=== PATIENT | female | born 1980 | race Caucasian/White ===

== ENCOUNTER 2017-10-26 18:15 | Emergency (ER) | payer OTHER ==
[2017-10-26] MEDS: LIDOCAINE 1% (MDV) 20 ML INJ SC (20:09)
== END 2017-10-26 20:21 | disposition home or self-care (01) ==
LOC: FTE 18:15
DX: O23.592 Infection of other part of genital tract in pregnancy, second trimester (principal); N75.1 Abscess of Bartholin's gland; Z3A.14 14 weeks gestation of pregnancy
CPT/HCPCS: 56420; 99283-25

== ENCOUNTER 2018-02-21 13:17 | Outpatient (CLI) | payer OTHER | END 2018-02-21 15:19 | disposition home or self-care (01) | LOC: OBT 13:17 → L-D 13:17 → OBT 15:19 | DX: O26.893 Other specified pregnancy related conditions, third trimester (principal); N75.0 Cyst of Bartholin's gland; O09.523 Supervision of elderly multigravida, third trimester; Z3A.31 31 weeks gestation of pregnancy | CPT/HCPCS: Z7500 ==

== ENCOUNTER 2018-02-23 16:23 | Inpatient (IN) | payer OTHER ==
[2018-02-23] MEDS: LACTATED RINGER'S 1,000 ML IV ×2 (17:58→22:37)
[2018-02-23] MEDS: ACETAMINOPHEN 1000MG/100ML IV 100 ML IVPB (17:59)
[2018-02-23] MEDS: LIDOCAINE 1% (MPF) 5 ML VIAL INFIL (18:27)
[2018-02-23] MEDS: TERBUTALINE 1 MG/ML INJ SC (18:33)
[2018-02-23] MEDS ORDERED: TERBUTALINE 1 MG/ML INJ SC (19:30)
[2018-02-23 21:07] LABS: ADD UMIC YES; UR ASCORBIC ACID 40 mg/dL (NEGATIVE); UR BACTERIA FEW /HPF (NONE SEEN); UR BILIRUBIN (Dip) NEGATIVE (NEGATIVE); UR BLOOD (Dip) NEGATIVE (NEGATIVE); UR CLARITY CLOUDY (CLEAR); UR COLOR YELLOW (YELLOW); UR GLUCOSE (Dip) NEGATIVE (NEGATIVE); UR KETONES (Dip) NEGATIVE (NEGATIVE); UR LEUKOCYTE ESTERASE (Dip) 3+ Leu/ul (NEGATIVE); UR MUCUS MODERATE /HPF (NONE SEEN); UR NITRITE (Dip) NEGATIVE (NEGATIVE); UR RBC 5 /HPF (0-5); UR SPECIFIC GRAVITY (Dip) 1.019 (1.003-1.030); UR SQUAMOUS EPITHELIAL CELL MANY /HPF (FEW); UR TOTAL PROTEIN (Dip) 1+ mg/dl (NEGATIVE); UR UROBILINOGEN (Dip) NEGATIVE (NEGATIVE); UR WBC 11 /HPF (0-5)
[2018-02-23] MEDS ORDERED: ACETAMINOPHEN 650 MG SUPP PR (22:00)
[2018-02-23 22:41] LABS: ADD MAN DIFF? NO
[2018-02-23 22:42] LABS: WHITE BLOOD COUNT 11.8 10^3/ul (4.8-10.8)
[2018-02-23 22:42] LABS: BASOPHIL # 0.1 10^3/ul (0.0-0.1); BASOPHILS % 0.5 % (0.0-2.0); EOSINOPHILS # 0.1 10^3/ul (0.0-0.5); HEMATOCRIT 26.4 % (37.0-47.0); LYMPHOCYTES # 2.1 10^3/ul (0.8-2.9); LYMPHOCYTES % 17.8 % (15.0-51.0); MEAN CORPUSCULAR HEMOGLOBIN 30.6 pg (29.0-33.0); MEAN CORPUSCULAR HGB CONC 34.1 g/dl (32.0-37.0); MEAN CORPUSCULAR VOLUME 89.8 fl (82.0-101.0); MEAN PLATELET VOLUME 9.9 fl (7.4-10.4); MONOCYTE # 0.8 10^3/ul (0.3-0.9); NEUTROPHIL # 8.6 10^3/ul (1.6-7.5); NEUTROPHILS % 72.9 % (39.0-77.0); PLATELET COUNT 250 10^3/UL (140-415); RED BLOOD COUNT 2.94 10^6/ul (4.20-5.40); RED CELL DISTRIBUTION WIDTH 12.2 % (11.5-14.5)
[2018-02-23] MEDS: MAGNESIUM SULFATE 4 GM/100 ML 100 ML IV (22:42)
[2018-02-23] MEDS: BETAMET NA PHOS/AC(6 MG/ML) 2 ML INJ SYG IM (23:00)
[2018-02-23] MEDS: MAGNESIUM SULFATE 20 GM/500 ML 500 ML IV (23:10)
[2018-02-24] MEDS: BETAMET NA PHOS/AC(6 MG/ML) 2 ML INJ SYG IM (00:17)
[2018-02-24] MEDS: metroNIDAZOLE 500 MG TAB PO ×4 (00:21→20:34)
[2018-02-24] MEDS: LACTATED RINGER'S 1,000 ML IV ×2 (03:30→10:11)
[2018-02-24 07:53] LABS: MAGNESIUM 4.1 mg/dl (1.7-2.5)
[2018-02-24] MEDS: DOCUSATE SODIUM 100 MG CAP PO ×2 (08:43→20:33)
[2018-02-24] MEDS: PRENATAL VITAMIN PO (08:43)
[2018-02-24] MEDS: AZITHROMYCIN 250 MG TAB PO (08:43)
[2018-02-24] MEDS: MAGNESIUM SULFATE 20 GM/500 ML 500 ML IV ×2 (08:45→18:05)
[2018-02-24] MEDS: ACETAMINOPHEN 325 MG TAB PO (10:10)
[2018-02-24 12:16] LABS: MAGNESIUM 4.4 mg/dl (1.7-2.5)
[2018-02-24 19:05] LABS: MAGNESIUM 4.4 mg/dl (1.7-2.5)
[2018-02-25] MEDS: LACTATED RINGER'S 1,000 ML IV ×2 (00:28→14:35)
[2018-02-25] MEDS: metroNIDAZOLE 500 MG TAB PO ×3 (00:50→12:00)
[2018-02-25] MEDS: BETAMET NA PHOS/AC(6 MG/ML) 2 ML INJ SYG IM (00:53)
[2018-02-25 00:55] LABS: MAGNESIUM 4.6 mg/dl (1.7-2.5)
[2018-02-25] MEDS: MAGNESIUM SULFATE 20 GM/500 ML 500 ML IV (04:13)
[2018-02-25] MEDS: DOCUSATE SODIUM 100 MG CAP PO (08:49)
[2018-02-25] MEDS: PRENATAL VITAMIN PO (08:49)
[2018-02-25] MEDS: AZITHROMYCIN 250 MG TAB PO (08:49)
[2018-02-25 10:07] LABS: MAGNESIUM 4.8 mg/dl (1.7-2.5)
[2018-02-25 13:50] LABS: MAGNESIUM 4.4 mg/dl (1.7-2.5)
[2018-02-25] MEDS: NIFEdipine 10 MG CAP PO (14:34)
== END 2018-02-25 15:55 | disposition home or self-care (01) | DRG 832 ==
LOC: OBT 16:23 → L-D 16:24 → OBT 21:51 → PP1 21:51
PROC: 0U9L0ZZ Drainage of Vestibular Gland, Open Approach (ICD-10-PCS; principal; 2018-02-23)
DX: O23.593 Infection of other part of genital tract in pregnancy, third trimester (principal); O47.03 False labor before 37 completed weeks of gestation, third trimester; Z3A.31 31 weeks gestation of pregnancy; O09.513 Supervision of elderly primigravida, third trimester
CPT/HCPCS: 36415; 76817; 76818; 81001; 83735; 85025; 87081; 87086; 96360; 96361

== ENCOUNTER 2018-04-10 04:28 | Inpatient (IN) | payer OTHER ==
[2018-04-10] MEDS: LACTATED RINGER'S 1,000 ML IV ×3 (05:25→10:22)
[2018-04-10] MEDS ORDERED: BUTORPHANOL 2 MG INJ IV (06:00)
[2018-04-10] MEDS ORDERED: MINERAL OIL LIGHT 10 ML VIAL TOP ×2 (06:00→10:00)
[2018-04-10] MEDS ORDERED: IBUPROFEN 600 MG TAB PO (06:00)
[2018-04-10] MEDS ORDERED: MISOPROSTOL 200 MCG TAB PR ×2 (06:00→17:00)
[2018-04-10] MEDS ORDERED: LIDOCAINE 1% (MPF) 30 ML INJ INJ (06:00)
[2018-04-10] MEDS ORDERED: CARBOPROST 250 MCG INJ IM ×2 (06:00→17:00)
[2018-04-10] MEDS ORDERED: OXYTOCIN 30 UNITS/LR 500 ML IV ×2 (06:00→17:00)
[2018-04-10] MEDS ORDERED: METHYLERGONOVINE 0.2 MG INJ IM ×2 (06:00→17:00)
[2018-04-10 06:05] LABS: ADD MAN DIFF? NO
[2018-04-10 06:10] LABS: BASOPHILS % 0.3 % (0.0-2.0); EOSINOPHILS % 0.3 % (0.0-7.0); HEMOGLOBIN 10.1 g/dl (12.0-16.0); LYMPHOCYTES # 2.4 10^3/ul (0.8-2.9); LYMPHOCYTES % 19.2 % (15.0-51.0); MEAN CORPUSCULAR HEMOGLOBIN 30.3 pg (29.0-33.0); MEAN CORPUSCULAR HGB CONC 34.8 g/dl (32.0-37.0); MEAN CORPUSCULAR VOLUME 87.1 fl (82.0-101.0); MONOCYTE # 0.9 10^3/ul (0.3-0.9); MONOCYTES % 7.1 % (0.0-11.0); NEUTROPHILS % 72.6 % (39.0-77.0); PLATELET COUNT 217 10^3/UL (140-415); RED BLOOD COUNT 3.33 10^6/ul (4.20-5.40); RED CELL DISTRIBUTION WIDTH 12.6 % (11.5-14.5)
[2018-04-10 06:10] LABS: WHITE BLOOD COUNT 12.4 10^3/ul (4.8-10.8)
[2018-04-10 06:36] LABS: PROTIME 11.2 Sec (11.9-14.9); PT RATIO 0.9
[2018-04-10 06:37] LABS: PARTIAL THROMBOPLASTIN TIME 23.9 Sec (23.0-35.0)
[2018-04-10 07:49] LABS: ADD UMIC YES; UR ASCORBIC ACID NEGATIVE (NEGATIVE); UR BILIRUBIN (Dip) NEGATIVE (NEGATIVE); UR BLOOD (Dip) 1+ mg/dL (NEGATIVE); UR CLARITY CLEAR (CLEAR); UR COLOR YELLOW (YELLOW); UR GLUCOSE (Dip) NEGATIVE (NEGATIVE); UR KETONES (Dip) TRACE mg/dL (NEGATIVE); UR LEUKOCYTE ESTERASE (Dip) NEGATIVE Leu/ul (NEGATIVE); UR MUCUS FEW /HPF (NONE SEEN); UR NITRITE (Dip) NEGATIVE (NEGATIVE); UR RBC 1 /HPF (0-5); UR SQUAMOUS EPITHELIAL CELL FEW /HPF (FEW); UR TOTAL PROTEIN (Dip) NEGATIVE (NEGATIVE); UR UROBILINOGEN (Dip) NEGATIVE (NEGATIVE); UR WBC 1 /HPF (0-5)
[2018-04-10 07:59] LABS: RUPTURE FETAL MEMBRANES POSITIVE (NEGATIVE)
[2018-04-10] MEDS ORDERED: FENTAnyl 2MCG/ML-ROPIV 0.2% 100 ML (09:53)
[2018-04-10] MEDS ORDERED: ONDANSETRON 4 MG INJ IV (10:00)
[2018-04-10] MEDS ORDERED: DIPHENHYDRAMINE 50 MG INJ IV (10:00)
[2018-04-10] MEDS ORDERED: NALOXONE (0.4 MG/ML) INJ IV (10:00)
[2018-04-10] MEDS: FENTAnyl 2MCG/ML-ROPIV 0.2% 100 ML BAG EPI (10:23)
[2018-04-10] MEDS ORDERED: MINERAL OIL LIGHT 10 ML VIAL ×2 (13:41→13:57)
[2018-04-10] MEDS: OXYTOCIN 30 UNITS/LR 500 ML IV ×2 (14:28→14:39)
[2018-04-10 15:09] LABS: RAPID PLASMA REAGIN NONREACTIVE (NR)
[2018-04-10] MEDS: CIPROFLOXACIN 400MG/D5W 200 ML IVPB (16:02)
[2018-04-10] MEDS: KETOROLAC 30 MG INJ IV (16:41)
[2018-04-10] MEDS ORDERED: HYDROCODONE/APAP (5/325) TAB PO (17:00)
[2018-04-10] MEDS ORDERED: ZOLPIDEM 5 MG TAB PO (17:00)
[2018-04-10] MEDS ORDERED: DIBUCAINE 1% 30 GM OINT TOP (17:00)
[2018-04-10] MEDS: WITCH HAZEL/GLYCERIN PAD PR (19:22)
[2018-04-10] MEDS: IBUPROFEN 600 MG TAB PO (19:22)
[2018-04-10] MEDS: CIPROFLOXACIN 500 MG TAB PO (19:22)
[2018-04-10] MEDS: LANOLIN HPA 1 PKT TOP (19:22)
[2018-04-10] MEDS: BENZOCAINE 20% 56 ML SPRAY TOP (19:22)
[2018-04-10] MEDS: MAGNESIUM HYDROXIDE 30ML CUP PO (21:01)
[2018-04-10] MEDS: LACTATED RINGER'S 1,000 ML IV* (21:01)
[2018-04-10] MEDS: SENNA/DOCUSATE NA (8.6MG/50MG) TAB PO (21:01)
[2018-04-11] MEDS: LACTATED RINGER'S 1,000 ML IV* ×3 (00:38→14:09)
[2018-04-11] MEDS: IBUPROFEN 600 MG TAB PO ×5 (01:17→23:47)
[2018-04-11] MEDS: CIPROFLOXACIN 500 MG TAB PO ×2 (05:53→18:51)
[2018-04-11] MEDS: HYDROCODONE/APAP (5/325) TAB PO (05:53)
[2018-04-11 06:46] LABS: ADD MAN DIFF? NO
[2018-04-11 06:48] LABS: WHITE BLOOD COUNT 16.6 10^3/ul (4.8-10.8)
[2018-04-11 06:48] LABS: BASOPHIL # 0.1 10^3/ul (0.0-0.1); BASOPHILS % 0.4 % (0.0-2.0); EOSINOPHILS # 0.1 10^3/ul (0.0-0.5); EOSINOPHILS % 0.4 % (0.0-7.0); HEMATOCRIT 29.3 % (37.0-47.0); HEMOGLOBIN 9.9 g/dl (12.0-16.0); LYMPHOCYTES # 3.4 10^3/ul (0.8-2.9); LYMPHOCYTES % 20.3 % (15.0-51.0); MEAN CORPUSCULAR HEMOGLOBIN 29.9 pg (29.0-33.0); MEAN CORPUSCULAR HGB CONC 33.8 g/dl (32.0-37.0); MEAN CORPUSCULAR VOLUME 88.5 fl (82.0-101.0); MONOCYTE # 1.5 10^3/ul (0.3-0.9); NEUTROPHIL # 11.4 10^3/ul (1.6-7.5); NEUTROPHILS % 69.1 % (39.0-77.0); PLATELET COUNT 201 10^3/UL (140-415); RED BLOOD COUNT 3.31 10^6/ul (4.20-5.40); RED CELL DISTRIBUTION WIDTH 12.9 % (11.5-14.5)
[2018-04-11] MEDS: MAGNESIUM HYDROXIDE 30ML CUP PO ×2 (11:12→21:00)
[2018-04-11] MEDS: SENNA/DOCUSATE NA (8.6MG/50MG) TAB PO ×2 (11:25→21:00)
[2018-04-12] MEDS: LACTATED RINGER'S 1,000 ML IV* (00:38)
[2018-04-12] MEDS: IBUPROFEN 600 MG TAB PO ×2 (05:25→12:05)
[2018-04-12] MEDS: CIPROFLOXACIN 500 MG TAB PO (05:25)
[2018-04-12 07:43] LABS: ADD MAN DIFF? NO
[2018-04-12 07:48] LABS: WHITE BLOOD COUNT 11.7 10^3/ul (4.8-10.8)
[2018-04-12 07:48] LABS: BASOPHIL # 0.1 10^3/ul (0.0-0.1); BASOPHILS % 0.6 % (0.0-2.0); EOSINOPHILS # 0.3 10^3/ul (0.0-0.5); EOSINOPHILS % 2.2 % (0.0-7.0); HEMATOCRIT 27.6 % (37.0-47.0); HEMOGLOBIN 9.2 g/dl (12.0-16.0); LYMPHOCYTES # 2.7 10^3/ul (0.8-2.9); LYMPHOCYTES % 23.3 % (15.0-51.0); MEAN CORPUSCULAR HEMOGLOBIN 30.2 pg (29.0-33.0); MEAN CORPUSCULAR HGB CONC 33.3 g/dl (32.0-37.0); MEAN CORPUSCULAR VOLUME 90.5 fl (82.0-101.0); MEAN PLATELET VOLUME 10.8 fl (7.4-10.4); MONOCYTES % 8.3 % (0.0-11.0); NEUTROPHIL # 7.6 10^3/ul (1.6-7.5); NEUTROPHILS % 64.8 % (39.0-77.0); PLATELET COUNT 220 10^3/UL (140-415); RED BLOOD COUNT 3.05 10^6/ul (4.20-5.40); RED CELL DISTRIBUTION WIDTH 13.2 % (11.5-14.5)
[2018-04-12] MEDS: MAGNESIUM HYDROXIDE 30ML CUP PO (09:00)
[2018-04-12] MEDS: VARICELLA VACCINE LIVE/PF 1,350 UNIT/0.5 ML ML SC* (09:07)
[2018-04-12] MEDS: DIPHTH/TET/ACEL PERTUSS (ADULT) 0.5 ML VIAL IM* (09:07)
[2018-04-12] MEDS: MEASLES,MUMPS,RUBELLA VACCINE INJ SC* (09:07)
[2018-04-12] MEDS: SENNA/DOCUSATE NA (8.6MG/50MG) TAB PO (09:21)
== END 2018-04-12 13:06 | disposition home or self-care (01) | DRG 806 ==
LOC: OBT 04:28 → L-D 04:30 → OBT 05:00 → L-D 05:00 → PP1 16:07
PROC: 10E0XZZ Delivery of Products of Conception, External Approach (ICD-10-PCS; principal; 2018-04-10)
PROC: 0W8NXZZ Division of Female Perineum, External Approach (ICD-10-PCS; 2018-04-10)
DX: O75.3 Other infection during labor (principal); N75.1 Abscess of Bartholin's gland; Z37.0 Single live birth; O76 Abnormality in fetal heart rate and rhythm complicating labor and delivery; O69.81X0 Labor and delivery complicated by cord around neck, without compression, not applicable or unspecified; Z3A.37 37 weeks gestation of pregnancy
CPT/HCPCS: 62319; 81001; 84112; 85025; 85610; 85730; 86592; 86850; 86900; 86901; 87086; 90716